=== PATIENT | female | born 1980 | race Asian ===

== ENCOUNTER → 2024-10-31 12:19 | Outpatient (CLI) | payer OTHER, SELFPAY ==
--- NOTE | 2024-10-31 12:23 | DI.RAD.S_ITS ---
PROCEDURE: FL ARTHROGRAM SHOULDER LT INDICATIONS: LT SHOULDER PAIN COMPARISON: [facility], MR, MR SHOULDER LT W CON, 10/31/2024, 12:53. TECHNIQUE: The indications, alternatives, benefits, risks, and complications of the procedure were explained to the patient. Written informed consent was obtained and placed in the chart. The shoulder was examined fluoroscopically and a site for needle placement chosen for entry into the glenohumeral joint from an anterior approach. The skin was prepped and draped in a sterile fashion, and 1% lidocaine infiltrated from skin down to joint capsule. A spinal needle was inserted into the glenohumeral joint, and a small amount of iodinated contrast media injected to confirm intra-articular placement of the needle tip. This was followed by approximately 12 mL dilute solution of a gadolinium containing MR contrast agent. The needle was removed and a dressing was applied. The patient was given postprocedural instructions and sent to the MR suite for MR imaging. FINDINGS: A single fluoroscopic spot image demonstrates intra-articular location of injected iodinated contrast. IMPRESSION: Successful fluoroscopically guided administration of dilute Gadolinium solution into the shoulder joint for MR arthrogram. Dictated by: Bradley Cates M.D. on 10/31/2024 at 14:33 Approved by: Bradley Cates M.D. on 10/31/2024 at 14:34
--- NOTE | 2024-10-31 12:24 | DI.MRI.S_ITS ---
PROCEDURE: MR SHOULDER LT W CON INDICATIONS: CHRONIC LT SHOULDER PAIN TECHNIQUE: After the administration of 12 mL of dilute intra-articular Gadolinium contrast, oblique coronal T1 and T2 spin echo with fat saturation, oblique sagittal T1 spin echo with and without fat saturation, oblique sagittal T2 fast spin echo with fat saturation, axial T1 spin echo with fat saturation through the shoulder. COMPARISON: None. FINDINGS: Image quality: Somewhat limited evaluation given patient motion.. Rotator cuff: There is low-grade articular sided tear at the critical zone of the posterior supraspinatus (07:13). The infraspinatus is unremarkable. The teres minor and the subscapularis are unremarkable. No muscle edema or fatty atrophy. Bones and bursae: Mild degenerative changes of the acromioclavicular joint. Type 1 acromion. No os acromiale. Moderate subacromial/subdeltoid bursitis. No contrast extravasating into the subacromial/subdeltoid bursa. Marrow signal of the proximal humerus and the glenoid is normal for age. No acute fracture. No focal chondral defect of the glenohumeral articulation. Capsule and soft tissues: Superior labral tear. No paralabral cyst. The extra-articular biceps tendon is unremarkable. Mild tendinosis of the intra- articular biceps tendon. No intra-articular body. IMPRESSION: 1. Mild degenerative changes of the acromioclavicular joint. Moderate subacromial/subdeltoid bursitis. 2. Low-grade articular sided tear at the posterior supraspinatus. 3. Superior labral tear. 4. Mild tendinosis of the intra-articular biceps tendon. Dictated by: Verona Adams M.D. on 10/31/2024 at 17:01 Approved by: Verona Adams M.D. on 10/31/2024 at 17:09
[2024-10-31] MEDS: SODIUM CHLORIDE 0.9 % 20 ML VIAL IV (13:06)
[2024-10-31] MEDS: LIDOCAINE 1% 20 ML INJ (13:06)
== END ==
LOC: RAD 12:21
PROVIDERS: Referring Provider Student in an Organized Health Care Education/Training Program; Visit Provider Student in an Organized Health Care Education/Training Program
DX: M75.112 Incomplete rotator cuff tear or rupture of left shoulder, not specified as traumatic (principal); S43.492A Other sprain of left shoulder joint, initial encounter; M75.52 Bursitis of left shoulder; M25.512 Pain in left shoulder
CPT/HCPCS: 23350; 73040; 73222; A9579; Q9967

== ENCOUNTER → 2024-12-10 12:07 | Outpatient (CLI) | payer OTHER, SELFPAY ==
--- NOTE | 2024-12-10 12:08 | DI.RAD.S_ITS ---
PROCEDURE: FL JOINT INJECTION LARGE LT INDICATIONS: Labrum lesion of left shoulder COMPARISON: [facility], , FL ARTHROGRAM SHOULDER LT, 10/31/2024, 11:43. TECHNIQUE: The indications, alternatives, benefits, risks, and complications of the procedure were explained to the patient. Written informed consent was obtained and placed in the chart. The patient was placed in an appropriate position on the fluoroscopy table, and a site was chosen for percutaneous access under fluoroscopic guidance. The site was prepped and draped in a sterile fashion. Local anesthetic was administered using a 1% lidocaine solution. A hypodermic or spinal needle was then used to access the symptomatic joint. Intra-articular location of the needle tip was confirmed by injecting a small amount of contrast, followed by steroid administration. The needle was then withdrawn, and a bandage applied to the puncture site. FINDINGS: Joint injected: Left glenohumeral joint Medications injected: 4 mL of 40 mg/mL Kenalog and 0.5% Ropivacaine mixture. Patient's pain before injection: 8 out of 10. Patient's pain after injection: 0 out of 10. Complications: None. IMPRESSION: Successful fluoroscopically guided administration of steroid and anaesthetic solution into the left shoulder joint. Dictated by: Eliseo Katz M.D. on 12/10/2024 at 14:41 Approved by: Eliseo Katz M.D. on 12/10/2024 at 14:42
[2024-12-10] MEDS: LIDOCAINE 1% 20 ML INJ (14:41)
[2024-12-10] MEDS: ROPIVACAINE 0.5% PF 5 MG/ML 20ML VIAL 20 ML INJ (14:42)
[2024-12-10] MEDS: TRIAMCINOLONE 40 MG/ML VIAL INTRA-ARTI (14:44)
== END ==
LOC: RAD 12:07
PROVIDERS: Visit Provider Radiology Diagnostic Radiology
DX: S43.432A Superior glenoid labrum lesion of left shoulder, initial encounter (principal)
CPT/HCPCS: 20610; 77002; Q9967